=== PATIENT | male | born 1970 | race Caucasian/White ===

== ENCOUNTER 2016-08-18 06:01 | Emergency (ER) | payer OTHER ==
[~2016-08-18 06:01] MED LIST: PAROXETINE HCL20 MG PO
== END 2016-08-18 07:05 | disposition home or self-care (01) ==
LOC: ER 06:01
DX: R07.9 Chest pain, unspecified (principal); F32.9 Major depressive disorder, single episode, unspecified; F41.9 Anxiety disorder, unspecified; I10 Essential (primary) hypertension; F17.210 Nicotine dependence, cigarettes, uncomplicated; Z88.5 Allergy status to narcotic agent; Z88.8 Allergy status to other drugs, medicaments and biological substances
CPT/HCPCS: 36415

== ENCOUNTER 2016-09-03 23:58 | Observation (INO) | payer OTHER ==
[~2016-09-03] VITALS: Ht 182.9 cm; Wt 103.2 kg
== END 2016-09-04 12:00 | disposition left against medical advice (07) ==
LOC: ER 23:58 → MED 09-04 05:36
PROVIDERS: ADMIT Internal Medicine Cardiovascular Disease
DX: K52.9 Noninfective gastroenteritis and colitis, unspecified (principal); I10 Essential (primary) hypertension; N17.9 Acute kidney failure, unspecified; R82.5 Elevated urine levels of drugs, medicaments and biological substances; F31.9 Bipolar disorder, unspecified; F17.210 Nicotine dependence, cigarettes, uncomplicated; Z86.59 Personal history of other mental and behavioral disorders; Z88.6 Allergy status to analgesic agent; Z88.8 Allergy status to other drugs, medicaments and biological substances; Z79.899 Other long term (current) drug therapy
CPT/HCPCS: 36415; 80307; 96361; 96374; 96375; G0378; G0480; J2550